=== PATIENT | female | born 1980 | race Caucasian/White ===

== ENCOUNTER 2022-07-29 10:51 | Outpatient (CLI) | payer MEDICAID, SELFPAY ==
[2022-07-29 12:23] LABS: Free T4 Free Thyroxine 2.99 ng/dL (0.82-1.77); Thyroid Stimulating Hormone 0.01 uIU/mL (0.27-4.20)
== END 2022-07-29 10:52 | disposition home or self-care (01) ==
LOC: LAB 10:54
PROVIDERS: PCP Family Medicine; Visit Provider Internal Medicine
DX: E06.3 Autoimmune thyroiditis (principal)
CPT/HCPCS: 84439; 84443

== ENCOUNTER 2022-09-19 16:41 | Outpatient (CLI) | payer MEDICAID, SELFPAY ==
[2022-09-19 21:13] LABS: Free T4 Free Thyroxine 2.29 ng/dL (0.82-1.77); Thyroid Stimulating Hormone 0.01 uIU/mL (0.27-4.20)
== END 2022-09-19 16:42 | disposition home or self-care (01) ==
LOC: LAB 16:46
PROVIDERS: PCP Family Medicine; Visit Provider Internal Medicine
DX: E06.3 Autoimmune thyroiditis (principal)
CPT/HCPCS: 84439; 84443

== ENCOUNTER 2022-10-10 16:42 | Outpatient (CLI) | payer MEDICAID, SELFPAY ==
[2022-10-10 20:24] LABS: Free T4 Free Thyroxine 1.71 ng/dL (0.82-1.77)
[2022-10-15 15:45] LABS: TSH Receptor Binding Antibody <1.00 IU/L (< OR = 2.00)
== END 2022-10-10 16:43 | disposition home or self-care (01) ==
LOC: LAB 16:45
PROVIDERS: PCP Family Medicine; Visit Provider Internal Medicine
DX: E03.8 Other specified hypothyroidism (principal); E06.3 Autoimmune thyroiditis
CPT/HCPCS: 83516; 84439

== ENCOUNTER → 2022-12-20 15:00 | Outpatient (BNVA) | payer MEDICAID, SELFPAY | PROVIDERS: PCP Family Medicine; Visit Provider Nurse Practitioner Women's Health | DX: Z01.419 Encounter for gynecological examination (general) (routine) without abnormal findings (principal); Z11.3 Encounter for screening for infections with a predominantly sexual mode of transmission | CPT/HCPCS: 86592; 86803; 87340; 87491; 87591; 87624; 87806 ==

== ENCOUNTER 2022-12-30 08:36 | Outpatient (CLI) | payer MEDICAID, SELFPAY ==
[2022-12-30 09:50] LABS: Free T4 Free Thyroxine 1.76 ng/dL (0.82-1.77); Thyroid Stimulating Hormone 0.03 uIU/mL (0.27-4.20)
[2022-12-31 05:29] LABS: T3 Total 81 ng/dL (76-181)
== END 2022-12-30 08:37 | disposition home or self-care (01) ==
PROVIDERS: PCP Family Medicine; Visit Provider Internal Medicine
DX: E03.8 Other specified hypothyroidism (principal); E06.3 Autoimmune thyroiditis
CPT/HCPCS: 36415; 84439; 84443; 84480

== ENCOUNTER 2023-01-16 11:29 | Outpatient (CLI) | payer MEDICAID, SELFPAY ==
--- NOTE | 2023-01-16 11:37 | MM_ITS ---
WS: [id number] BILATERAL 3D TOMOSYNTHESIS DIGITAL SCREENING MAMMOGRAPHY WITH CAD CLINICAL INFORMATION: Z12.31 - Encounter for screening mammogram for malignant ... HISTORY: Screening mammogram. No current complaints. COMPARISON: Baseline TECHNIQUE: Bilateral CC and MLO views. FINDINGS: The breasts are composed of heterogeneous fibroglandular density tissue, which can limit the detectio n of small underlying mass lesions. No suspicious mass, asymmetry, calcifications, or architectural d istortion. No evidence of malignancy. A few tiny incidental punctate calcifications. IMPRESSION: MM/[place] [id number] BI-RADS: 2-Benign FOLLOW UP: 1 Year Follow-up Recommend return to annual screening mammography.
== END 2023-01-16 11:30 | disposition home or self-care (01) ==
LOC: RAD 11:32 → MOBLMAM 11:37
PROVIDERS: PCP Family Medicine; Visit Provider Nurse Practitioner Women's Health
DX: Z12.31 Encounter for screening mammogram for malignant neoplasm of breast (principal)
CPT/HCPCS: 77063; 77067

== ENCOUNTER → 2023-01-18 11:54 | Outpatient (BNVA) | payer MEDICAID, SELFPAY | PROVIDERS: Visit Provider Family Medicine | DX: K52.832 Lymphocytic colitis (principal); D64.9 Anemia, unspecified; Z00.00 Encounter for general adult medical examination without abnormal findings | CPT/HCPCS: 80053; 80061; 82306; 82607; 82728; 83550; 84630; 85025 ==

== ENCOUNTER 2023-01-19 07:52 | Emergency (ER) | payer MEDICAID, SELFPAY ==
[2023-01-19 07:56] VITALS: BP 130/100; PULSE 76; RESP 17; TEMP 37.1; O2SAT 100
[2023-01-19 08:14] VITALS: BP 130/100; PULSE 66; RESP 14; O2SAT 100
[2023-01-19 08:18] LABS: Basophils # 0.1 10^3/uL (0.0-0.1); Eosinophils # 0.1 10^3/uL (0.0-0.8); Eosinophils % 1.5 %; Hematocrit 27.3 % (37.0-47.0); Hemoglobin 7.1 g/dL (11.5-15.3); Lymphocytes # 1.9 10^3/uL (0.8-4.8); Lymphocytes % 30.8 %; Mean Corpuscular Hemoglobin 16.2 pg (28.0-34.0); Mean Corpuscular Volume 62.5 fl (81-99); Mean Platelet Volume 9.2 fL (7.4-10.4); Monocytes # 0.4 10^3/uL (0.2-0.9); Monocytes % 7.1 %; Neutrophils # 3.58 10^3/uL (1.8-7.7); Neutrophils % 59.4 %; Nucleated Red Blood Cells % 0 %; Platelet Count 372 10^3/cmm (130-400); Red Blood Count 4.37 10^6/uL (4.1-5.3); Red Cell Distribution Width 20.8 % (12.1-15.1)
--- NOTE | 2023-01-19 08:21 | W.ED.RECABL ---
HPI - Recheck/Abnormal Lab/Rx General: Chief Complaint: Recheck/Abnormal Lab/Rx Stated Complaint: pcp due to labs Time Seen by Provider: 01/19/23 07:55 Source: patient Mode of arrival: ambulatory Limitations: no limitations History of Present Illness: Patient is a 42-year-old female with history of hypothyroidism and chronic anemia who presents to the emergency department due to abnormal labs yesterday. Patient was being seen by primary care provider for new patient visit yesterday, and had labs drawn resulting in a hemoglobin of 6.9 and a potassium of 2.8. She was called today and told to present to the emergency department for recheck of abnormal lab values and further work-up if necessary. Currently, her only complaint is increased hair loss with increased coarseness. She states that her hemoglobin has been low for quite some time but she isn't sure what her baseline is. She notes feeling chronically fatigued, as well as an intolerance to cold. She denies any significant weight gain, actually stating that she has lost weight due to diet changes. She recently had her levothyroxine decreased from 175 mcg to 100 mcg because her TSH was running low and free T4 was elevated. Her clinique counter manager is Dr. Priest, and she states that she recently saw her and had negative thyroid work-up, including testing negative for Graves' disease. She states that overall she feels okay right now. She denies any melena or hematochezia. She further denies any palpitations, chest pain, shortness of breath, or any other symptoms. MD complaint: abnormal lab Initial visit (ago): day(s) Returns today for: called because of abnormal lab/test Description of abnormal result: Hemoglobin of 6.9/potassium of 2.8 Symptoms since prior visit: no new symptoms Context: called for abnormal lab result Associated symptoms: other (states I feel fine ) Review of Systems Const: Reports: change in weight (Intentional weight loss), fatigue and other (Reports abnormal lab); Denies: fever(s) or chills Eyes: Denies: change in vision or blurry vision Card: Denies: chest pain, palpitations, irregular heart rhythm, lightheadedness, syncope or dyspnea on exertion Resp: Denies: dyspnea, productive cough or pain on inspiration GI: Denies: abdominal pain, nausea, vomiting, heartburn, diarrhea, hematochezia or melena : Denies: dysuria Musc: Denies: neck pain, back pain or joint pain Skin/Breast: Denies: rash Neuro: Denies: headache(s), numbness in extremities, weakness in extremities, sensory changes or dizziness Endo: Reports: cold intolerance and other PFS ED PFSH: Medical History Anemia Rao's disease Heart murmur Lymphocytic colitis No pertinent past medical history neghx:htn,dm,dvt/pe PCP: Jarrett Endo: Cem Surgical History History of laparoscopic cholecystectomy Hx of section 2005--Pre-Eclampsia at term; failed induction 2007-- repeat 2010-- repeat with tubal ligation Hx of colonoscopy with polypectomy Family History Mother Cancer skin cancer Diabetes Rao's disease Father Cancer Prostate cancer Grandmother Cancer PGM- unknown age of dx Denies family history of CAD (coronary artery disease) Hyperlipidemia Chronic kidney disease (CKD) Bleeding disorder Family history of premature coronary artery disease Hypertension Stroke Social History Smoking and tobacco status: former smoker Alcohol intake: current Alcohol intake frequency: few times a month Substance/Drug Use: never Household members: children Number of children: 3 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 Stephania/Mandaen: Gerber Physical Exam Const: COMMON NORMALS: no acute distress, average body habitus, patient oriented x3, no limitations, healthy appearing, alert and well nourished GENERAL APPEARANCE: cooperative ORIENTATION/CONSCIOUSNESS: Yes awake, Yes oriented to person, Yes oriented to place and Yes oriented to time HENMT: COMMON NORMALS: normocephalic and atraumatic HEAD & SCALP: normal to inspection, normocephalic and atraumatic Eye: COMMON NORMALS: no scleral icterus GENERAL EYE: appearance normal, both eyes and all related structures and normal light reflex DIRECT OPHTHALMOSCOPY: Yes normal light reflex Resp: COMMON NORMALS: normal respiratory effort and clear to auscultation bilaterally AUSCULTATION: clear to auscultation bilaterally Cardio: COMMON NORMALS: regular rate and regular rhythm RATE: regular rate RHYTHM: regular rhythm GI: COMMON NORMALS: Normal to inspection, nondistended, normoactive bowel sounds present, Soft to palpation, non-tender, No hepatosplenomegaly present and no masses PALPATION: Yes Soft to palpation and Yes No hepatosplenomegaly present Extremity: COMMON NORMALS: normal to inspection GENERAL: Yes normal exam except as noted Neuro: LUIS A COMA SCALE: document GCS findings Luis A coma scale eye opening: Spontaneous Luis A coma scale verbal response: Orientated [place] coma scale motor response: Obey commands [place] coma scale total score: 15 COMMON NORMALS: patient oriented x3, moves all extremities, no focal motor deficits, no sensory deficits noted and gait normal SENSORIUM/ORIENTATION: Yes alert, Yes oriented to person, Yes oriented to place and Yes oriented to time Skin: COMMON NORMALS: no rashes or lesions noted GENERAL SKIN EXAM: no rashes or lesions noted Course Vital Signs: Vital signs: Vital Signs Temperature 98.7 F 01/19/23 07:56 Pulse Rate 66 01/19/23 08:14 Respiratory Rate 14 01/19/23 08:14 Blood Pressure 130/100 01/19/23 08:14 Pulse Oximetry 100 01/19/23 08:14 Oxygen Delivery Me thod Room Air 01/19/23 08:14 MDM - Recheck/Abnormal Lab/Rx Medical Decision Making Patient was offered a blood transfusion for her hemoglobin of 6.9 but she declines. She states she has reservations about receiving somebody else's blood . She states I feel fine . She has history of chronic anemia-unknown baseline hemoglobin. Recommend she follow-up with her primary care provider in regards to this. Her hemoglobin today is 7.1. PCP has mentioned possibly setting her up with IV iron infusions. This can be completed on an outpatient basis. Her potassium on previous lab draw was 2.8. It is 3.3 today with a normal magnesium. EKG is normal. She was given PO potassium here and will be placed on potassium at home over the next week. Recommend primary care recheck this in a week or so. She can continue to follow-up with her clinique counter manager in regards to her thyroid. Patient is stable from an ED standpoint. Lab Data 01/19/23 08:09 01/19/23 08:09 Laboratory Results WBC 6.0 10^3/uL (4.0-10.0) 01/19/23 08:09 RBC 4.37 10^6/uL (4.1-5.3) 01/19/23 08:09 Hgb 7.1 g/dL (11.5-15.3) L 01/19/23 08:09 Hct 27.3 % (37.0-47.0) L 01/19/23 08:09 MCV 62.5 fl (81-99) L 01/19/23 08:09 MCH 16.2 pg (28.0-34.0) L 01/19/23 08:09 MCHC 26.0 g/dL (30.0-36.0) L 01/19/23 08:09 RDW 20.8 % (12.1-15.1) H 01/19/23 08:09 Plt Count 372 10^3/cmm (130-400) 01/19/23 08:09 MPV 9.2 fL (7.4-10.4) 01/19/23 08:09 Neut % (Auto) 59.4 % 01/19/23 08:09 Lymph % (Auto) 30.8 % 01/19/23 08:09 [place] % (Auto) 7.1 % 01/19/23 08:09 Eos % (Auto) 1.5 % 01/19/23 08:09 Baso % (Auto) 1.0 % 01/19/23 08:09 Neut # (Auto) 3.58 10^3/uL (1.8-7.7) 01/19/23 08:09 Lymph # (Auto) 1.9 10^3/uL (0.8-4.8) 01/19/23 08:09 [place] # (Auto) 0.4 10^3/uL (0.2-0.9) 01/19/23 08:09 Eos # (Auto) 0.1 10^3/uL (0.0-0.8) 01/19/23 08:09 Baso # (Auto) 0.1 10^3/uL (0.0-0.1) 01/19/23 08:09 Nucleated RBC % (auto) 0 % 01/19/23 08:09 Nucleated RBCs # 0.0 /100WBC 01/19/23 08:09 Sodium 139 mmol/L (136-145) 01/19/23 08:09 Potassium 3.3 mmol/L (3.5-5.1) L 01/19/23 08:09 Chloride 103 mmol/L (98-107) 01/19/23 08:09 Carbon Dioxide 26 mmol/L (22-29) 01/19/23 08:09 Anion Gap 13.3 (5-19) 01/19/23 08:09 BUN 9 mg/dL (6-20) 01/19/23 08:09 Creatinine 0.6 mg/dL (0.5-0.9) 01/19/23 08:09 GFR Calculation 109.1 mL/min (90-130) 01/19/23 08:09 Glucose 144 mg/dL (65-115) H 01/19/23 08:09 Calculated Osmolality 289 mOsm/kg (285-295) 01/19/23 08:09 Calcium 8.8 mg/dL (8.5-10.5) 01/19/23 08:09 Magnesium 2.1 mg/dL (1.7-2.3) 01/19/23 08:09 Total Bilirubin 0.4 mg/dL (0.15-1.2) 01/19/23 08:09 AST 16 U/L (0-32) 01/19/23 08:09 ALT < 5 U/L (0-33) 01/19/23 08:09 Alkaline Phosphatase 46 U/L (35-105) 01/19/23 08:09 Total Protein 6.9 g/dL (6.6-8.7) 01/19/23 08:09 Albumin 4.3 g/dL (3.5-5.2) 01/19/23 08:09 Globulin 2.6 g/dL (1.3-4.6) 01/19/23 08:09 EKG Data EKG 1: EKG interpretation date: 01/19/23 EKG interpretation time: 08:39 Interpretation: Sinus rhythm Rate [address] elevation or depression changes noted Normal NM interval Discharge Plan Discharge Patient Disposition: Home Clinical Impression: Hypokalemia, Microcytic anemia Condition: Stable Prescriptions: New potassium chloride 20 mEq tablet extended release 20 meq PO BID Qty: 14 0RF No Action levothyroxine 100 mcg capsule 100 mcg PO DAILY Qty: 30 1RF biotin 800 mcg Tablet 800 mcg PO DAILY Discharge Orders: Discharge ED (Routine); Ordered 01/19/23 Ordered By: Jyotsna Francisco Activity Restrictions/Additional Instructions: As we have discussed you have declined blood transfusion at this time. Recommend you continue to follow-up with your primary care provider in regards to your chronic anemia. They have mentioned possibly setting you up with IV iron infusions. This can be completed on an outpatient basis. Your potassium here was higher than it was on previous lab draw. You were given oral potassium here and will be placed on potassium tablets at home over the next week. Please follow-up with your primary care provider and have this rechecked in a week. As we discussed may continue to follow-up with your clinique counter manager in regards to your thyroid. Coding Level of Care Code ED Union Organizer for Esteban Chao
[2023-01-19 08:35] LABS: Alanine Aminotransferase < 5 U/L (0-33); Albumin Level 4.3 g/dL (3.5-5.2); Alkaline Phosphatase 46 U/L (35-105); Anion Gap 13.3 (5-19); Aspartate Amino Transferase 16 U/L (0-32); Blood Urea Nitrogen 9 mg/dL (6-20); Calcium 8.8 mg/dL (8.5-10.5); Carbon Dioxide 26 mmol/L (22-29); Chloride 103 mmol/L (98-107); Globulin 2.6 g/dL (1.3-4.6); Glomerular Filtration Rate 109.1 mL/min (90-130); Glucose 144 mg/dL (65-115); Magnesium 2.1 mg/dL (1.7-2.3); Osmolality Calculated 289 mOsm/kg (285-295); Potassium 3.3 mmol/L (3.5-5.1); Sodium 139 mmol/L (136-145); Total Bilirubin 0.4 mg/dL (0.15-1.2); Total Protein 6.9 g/dL (6.6-8.7)
[2023-01-19] MEDS: potassium chloride ER 20 mEq Tablet 40 MEQ PO (08:43)
[2023-01-19 09:22] VITALS: BP 132/82; PULSE 66; RESP 16; O2SAT 100
--- NOTE | 2023-01-20 12:00 | DCPLANNER ---
manager of network was triggered to call patient due to no primary care physician - patient sees Dr. Farias at [facility].
== END 2023-01-19 09:29 | disposition home or self-care (01) ==
PROVIDERS: Emergency Medicine; Emergency Provider Physician Assistant; PCP Family Medicine
DX: E87.6 Hypokalemia (principal); D50.9 Iron deficiency anemia, unspecified; Z87.891 Personal history of nicotine dependence
CPT/HCPCS: 36415; 80053; 83735; 85025; 86850; 86900; 86920; 99284

== ENCOUNTER → 2023-01-27 11:05 | Outpatient (BNVA) | payer MEDICAID, SELFPAY | PROVIDERS: PCP Family Medicine; Visit Provider Family Medicine | DX: D64.9 Anemia, unspecified (principal) | CPT/HCPCS: 80048; 83540; 85025 ==

== ENCOUNTER 2023-02-02 09:38 | Outpatient (CLI) | payer MEDICAID, SELFPAY ==
--- NOTE | 2023-02-02 09:45 | USCV_ITS ---
Nori Lopez Age: 42 Gender: F : 1980 Exam Date: 02/02/2023 10:03 Ordering Phys: Ronel Farias MD Technologist: ANTONIO [place] [facility] [place]: MURMUR BP: 110 / 60 HR: 65 Rhythm: Sinus Technical Quality: Adequate MEASUREMENTS (Male / Female) Normal Values 2D ECHO LVOT Diameter 2.0 cm LV Ejection Fraction MOD 2C 66.9 % LV Ejection Fraction 2C AL 66.0 % LA Diameter 2.0 cm LA Width 2.5 cm LA Height 4.6 cm RA Width 2.6 cm RA Height 4.4 cm Aorta at Sinotubular Diameter 2.2 cm IVC Diameter 1.7 cm M-MODE Aortic Annulus Diameter 2.5 cm LA Ao Ratio MM 0.7 MV E Point Septal Separation 0.3 cm DOPPLER AV Peak Velocity 139.0 cm/s LVOT Peak Velocity 78.0 cm/s AV Area Cont Eq vti 2.2 cm squared AV Area Cont Eq pk 1.8 cm squared MV Peak Velocity 89.0 cm/s MV Area PHT 3.0 cm squared Mitral E to A Ratio 1.3 MV E' Velocity 61.0 cm/s Mitral E to MV E' Ratio 8.0 Mitral E to LV E' Lateral Ratio 7.8 Mitral E to LV E' Septal Ratio 8.3 TR Peak Velocity 158.4 cm/s TR Peak Gradient 10.0 mmHg TR Mean Velocity 126.9 cm/s TR Mean Gradient 7.1 mmHg TR Velocity Time Integral 42.3 cm TV Peak E Velocity 55.0 cm/s Right Atrial Pressure 3.0 mmHg Pulmonary Artery Systolic Pressu 13.0 mmHg PV Peak Velocity 132.0 cm/s RV Acceleration Time 0.2 s RV Ejection Time 0.3 s RV AcT/ET 0.5 FINDINGS Left Ventricle Normal left ventricular size, systolic function and wall thickness, with no regional wall motion abnormalities. Left ventricular ejection fraction is estimated at 60 %. Normal diastolic function. Right Ventricle Normal right ventricular size and systolic function. Right ventricular systolic pressure 13 mmHg. Right Atrium Normal right atrial size. Left Atrium Normal left atrial size. Mitral Valve Structurally normal mitral valve. No mitral valve stenosis. No mitral valve regurgitation. Aortic Valve Structurally normal trileaflet aortic valve. No aortic valve stenosis. No aortic valve regurgitation. Tricuspid Valve Structurally normal tricuspid valve. No tricuspid valve stenosis. Trace tricuspid valve regurgitation. Pulmonic Valve Pulmonic valve not well visualized. Pericardium No pericardial effusion. Aorta Normal size aortic root and proximal ascending aorta. IVC Normal IVC dimension with >50% respiratory change of the inferior vena cava. CONCLUSIONS 1.Normal left ventricular size, systolic function and wall thickness, with no regional wall motion abnormalities. Left ventricular ejection fraction is estimated at 60 %. Normal diastolic function. 2. No significant valvular abnormality. 3. No prior similar studies to compare. Lupis Pollock MD (Electronically Signed) Final Date: 13 February 2023 00:06 S
== END 2023-02-02 09:39 | disposition home or self-care (01) ==
LOC: RAD 09:39
PROVIDERS: PCP Family Medicine; Visit Provider Family Medicine
DX: R01.1 Cardiac murmur, unspecified (principal)
CPT/HCPCS: 93306

== ENCOUNTER 2023-02-14 12:47 | Outpatient (CLI) | payer MEDICAID, SELFPAY ==
--- NOTE | 2023-02-14 13:00 | USCV_ITS ---
Nori Lopez Age: 42 Gender: F : 1980 Exam Date: 02/14/2023 13:06 Ordering Phys: James Alvarado MD (Andy) ([email or web address]) Technologist: Exam Location: [facility] [place] Indication: HISTORY: Varicose veins. PROCEDURES: Bilateral duplex Venous Insufficiency study of the Deep and Superficial systems was carried out according to normal protocol with the patient in supine positon for deep system and dependent position for the superficial system. FINDINGS: All deep veins demonstrated compressibility without evidence of intraluminal thrombus or increased echogenicity. Spectral analysis of Doppler signals demonstrates normal response to compression maneuvers indicating patency without obstruction. Reflux determinations were made with the patient in the dependent position, the weight being on the contralateral leg. There is significanct reflux in the rt leg a distal gsaph and gsaph below the knee. The reflux time at the distal and below-knee greater saphenous vein segments where 3.04 and 2.78 seconds respectively. The D segments were measuring 0.38 and 0.27 cm in diameter and at a depth of 0.67 and 1.48 cm from the surface No significant reflux were noted on the left side. The veins were found to be easily compressible with spontaneous blood flow. Non pulsatile flow pattern. CONCLUSIONS 1. No evidence of DVT in the above-mentioned identifiable veins. 2. Significant referral if venous reflux of greater than 500 ms were noted at the distal and below-knee segments of the greater saphenous vein on the right side. The reflux time, venous diameter and depth on the surface are as mentioned above. The distal greater saphenous vein segment appears to be very superficial, less than 1 cm from the surface 3. No significant venous reflux were noted on the left side . Dr Massiel Smallwood MD [facility] (Electronically Signed) Final Date: 15 February 2023 10:32 S
== END 2023-02-14 12:48 | disposition home or self-care (01) ==
LOC: RAD 12:50
PROVIDERS: PCP Family Medicine; Visit Provider Thoracic Surgery (Cardiothoracic Vascular Surgery)
DX: I83.90 Asymptomatic varicose veins of unspecified lower extremity (principal)
CPT/HCPCS: 93970

== ENCOUNTER 2023-02-27 11:30 | Oncology outpatient (recurring) (ONCR) | payer MEDICAID, SELFPAY ==
[2023-02-16 08:19] VITALS: BP 105/69; PULSE 64; RESP 16; TEMP 36.6; O2SAT 99
[2023-02-16] MEDS: sodium chloride 0.9% 250 ML 100 ML IV (08:46)
[2023-02-16] MEDS: iron sucrose 200 MG in sodium chloride 0.9% (100 ml) 100 ML 220 MG IV (08:46)
[2023-02-16 09:43] VITALS: BP 100/60; PULSE 16; RESP 16; TEMP 36.7; O2SAT 99
[2023-02-20 11:05] VITALS: BP 113/76; PULSE 68; RESP 16; TEMP 36.9; O2SAT 99
[2023-02-20] MEDS: sodium chloride 0.9% 250 ML 75 ML IV (11:11)
[2023-02-20] MEDS: iron sucrose 200 MG in sodium chloride 0.9% (100 ml) 100 ML 220 MG IV (11:18)
[2023-02-20 12:12] VITALS: BP 137/77; PULSE 62; RESP 16; TEMP 36.4; O2SAT 99
[2023-02-22 08:30] VITALS: BP 135/63; PULSE 62; RESP 16; TEMP 36.6; O2SAT 97
[2023-02-22] MEDS: sodium chloride 0.9% 250 ML 75 ML IV (08:47)
[2023-02-22] MEDS: iron sucrose 200 MG in sodium chloride 0.9% (100 ml) 100 ML 220 MG IV (08:47)
[2023-02-22 09:25] VITALS: BP 120/72; PULSE 72; RESP 16; TEMP 36.7; O2SAT 99
[2023-02-24 10:00] VITALS: BP 126/73; PULSE 61; RESP 16; TEMP 37.2; O2SAT 97
[2023-02-24] MEDS: iron sucrose 200 MG in sodium chloride 0.9% (100 ml) 100 ML 220 MG IV (10:21)
[2023-02-24 10:58] VITALS: BP 106/62; PULSE 65; RESP 16; TEMP 36.9; O2SAT 97
[2023-02-27 11:17] VITALS: BP 107/72; PULSE 72; RESP 18; TEMP 36.8; O2SAT 99
[2023-02-27] MEDS: iron sucrose 200 MG in sodium chloride 0.9% (100 ml) 100 ML 220 MG IV (11:26)
[2023-02-27] MEDS: sodium chloride 0.9% 250 ML 100 ML IV (11:26)
[2023-02-27 12:14] VITALS: BP 116/72; PULSE 60; RESP 18; TEMP 36.6; O2SAT 99
== END 2023-03-04 23:59 | disposition home or self-care (01) ==
PROVIDERS: PCP Family Medicine; Visit Provider Family Medicine
DX: D50.9 Iron deficiency anemia, unspecified (principal); Z53.9 Procedure and treatment not carried out, unspecified reason
CPT/HCPCS: 96365; J1756; J7050

== ENCOUNTER 2023-03-03 15:08 | Outpatient (CLI) | payer MEDICAID, SELFPAY ==
[2023-03-03 15:34] LABS: Basophils # 0.1 10^3/uL (0.0-0.1); Basophils % 0.7 %; Eosinophils # 0.1 10^3/uL (0.0-0.8); Eosinophils % 0.7 %; Hematocrit 30.7 % (36-47); Lymphocytes # 2.3 10^3/uL (0.8-4.8); Lymphocytes % 34.5 %; Mean Corpuscular HGB Conc 28.3 g/dL (30-55); Mean Corpuscular Hemoglobin 21.2 pg (27-33); Mean Corpuscular Volume 74.9 fl (85-98); Mean Platelet Volume 10.5 fL (7.4-10.4); Monocytes # 0.4 10^3/uL (0.2-0.9); Monocytes % 6.3 %; Neutrophils # 3.83 10^3/uL (1.8-7.7); Neutrophils % 57.5 %; Nucleated Red Blood Cells % 0 %; Platelet Count 318 10^3/cmm (157-399); White Blood Count 6.67 10^3/uL (3.29-11.43)
[2023-03-03 16:00] LABS: Ferritin 205 ng/mL (15-150); Iron 50 ug/dL (37-145); Percent Saturation 13.5 % (20-50); Total Iron Binding Capacity 369 mcg/dl; Unsaturated Iron Binding 319 ug/dL (112-347)
[2023-03-03 16:02] LABS: Add RBC Morph Yes; Anisocytosis 3+; Hypochromasia 1+; Macrocytosis 2+; Ovalocytes Trace; Polychromasia 2+; RBC Morph Comp No; Slide Review Slide Review Perform
[2023-03-03 16:03] LABS: Acanthocytes Trace
== END 2023-03-03 15:09 | disposition home or self-care (01) ==
PROVIDERS: PCP Family Medicine; Visit Provider Internal Medicine
DX: D50.9 Iron deficiency anemia, unspecified (principal)
CPT/HCPCS: 36415; 82728; 83540; 83550; 85025

== ENCOUNTER 2023-03-06 08:09 | Outpatient (CLI) | payer MEDICAID, SELFPAY ==
[2023-03-06 08:58] LABS: Free T4 Free Thyroxine 1.64 ng/dL (0.82-1.77); Thyroid Stimulating Hormone 0.08 uIU/mL (0.27-4.20)
== END 2023-03-06 08:10 | disposition home or self-care (01) ==
PROVIDERS: PCP Family Medicine; Visit Provider Internal Medicine
DX: D50.9 Iron deficiency anemia, unspecified; E03.8 Other specified hypothyroidism; E06.3 Autoimmune thyroiditis
CPT/HCPCS: 84439; 84443

== ENCOUNTER 2023-04-18 05:49 | Day surgery (SDC) | payer MEDICAID, SELFPAY ==
--- NOTE | 2023-04-18 06:12 | USCV_ITS ---
HalRupinder curiely Age: 42 Gender: F : 1980 Exam Date: 04/18/2023 07:01 Ordering Phys: James Alvarado MD (Andy) ([email or web address]) Technologist: Sina Quiroz [place] [facility] [place]: varicose veins PROCEDURES: Rt leg great saph ablation guidance FINDINGS: Sucessfull rt great saph ablation good flow in epigastic. The common femoral vein, saphenofemoral junction, epigastric vein were found to be patent with no evidence of thrombus. The greater saphenous vein distal to the epigastric inferior epigastric was found to be occluded CONCLUSIONS 1. Patent saphenofemoral junction and the inferior epigastric vein 2. Occluded greater saphenous vein distal to the epigastric Dr Massiel Smallwood MD FAC (Electronically Signed) Final Date: 19 April 2023 23:04 S
[2023-04-18 06:30] VITALS: BP 121/73; PULSE 70; RESP 18; TEMP 36.8; O2SAT 99; BMI 24.1
--- NOTE | 2023-04-18 06:31 | PM.HP ---
Providers/Chief Complaint Admitting Physician: Dr. Alvarado Primary Care Provider: Ronel Farias MD Chief Complaint: 31249 I26.852 History of Present Illness Nori Lopez is a 42 year old female whom I saw originally back on January 31 for symptomatic varicose veins of the right lower extremity, mostly involving the medial aspect and to lesser degree posteriorly of the left extremity. Her biggest complaint however was right lower extremity discomfort with prolonged standing. She has a known iron deficiency anemia and has been scheduled for initiation of IV iron therapy after failure of improvement with oral. She had been utilizing knee-high compression garments upon her original presentation today and did note symptomatic improvement. We separately obtained venous duplex study with reflux provocation which identified reflux involving the distal thigh and below-knee segments of the right greater saphenous vein. Upon discussion for consideration of RF catheter ablation, she wished to proceed with hopeful improvement of her symptoms, though clear understanding that it may not be beneficial. Review of Systems Const: Reports: fatigue; Denies: fever(s) or chills Eyes: Denies: change in vision ENMT: Denies: throat pain Card: Reports: palpitations; Denies: chest pain, edema or lightheadedness Resp: Denies: dyspnea or productive cough GI: Denies: abdominal pain, nausea or vomiting : Denies: flank pain Musc: Reports: extremity pain (Right lower extremity with prolonged standing); Denies: neck pain Skin/Breast: Denies: rash or non-healing lesions Neuro: Denies: headache(s) or numbness in extremities Psych: Denies: anxiety or depression Medications/Allergies Home Medications Medication Instructions Recorded Confirmed Last Taken Type biotin 800 mcg tablet 800 mcg PO DAILY 01/19/23 04/17/23 04/17/23 History levothyroxine 75 mcg tablet 75 mcg PO DAILY 30 days #30 tabs 03/20/23 04/18/23 04/18/23 05:00 Rx Allergies Allergy/AdvReac Type Severity Reaction Status Date / Time No Known Allergies Allergy Verified 04/18/23 06:05 PFSH Acute PFSH: Medical History Accessory breast tissue of axilla Heart murmur 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 Iron deficiency anemia Lymphocytic colitis Surgical History History of laparoscopic cholecystectomy Hx of section 2005--Pre-Eclampsia at term; failed induction 2007-- repeat 2010-- repeat with tubal ligation Hx of colonoscopy with polypectomy Family History Mother Cancer skin cancer Diabetes Rao's disease Father Cancer Prostate cancer Grandmother Cancer PGM- unknown age of dx Denies family history of CAD (coronary artery disease) Hyperlipidemia Chronic kidney disease (CKD) Bleeding disorder Family history of premature coronary artery disease Hypertension Stroke Social History Smoking and tobacco/nicotine status: former use of tobacco/nicotine Alcohol intake: current Alcohol intake frequency: few times a month Substance/Drug Use: never Household members: children Number of children: 3 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 Stephania/Gnosticist: Zabrina Vitals/I&O/Wt Last Vital Signs Temp 98.2 F 04/18/23 06:30 Pulse 70 04/18/23 06:30 Resp 18 04/18/23 06:30 BP 121/73 04/18/23 06:30 Pulse Ox 99 04/18/23 06:30 O2 Del Method Room Air 04/18/23 06:30 Weight last 48 hrs Weight 145 lb Physical Exam Const: COMMON NORMALS: no acute distress, average body habitus and patient oriented x3 HENMT: COMMON NORMALS: normocephalic, atraumatic and hearing grossly normal bilaterally Eye: COMMON NORMALS: EOMs intact bilaterally and no scleral icterus Neck/C-Spine: COMMON NORMALS: full ROM Resp: COMMON NORMALS: normal respiratory effort and clear to auscultation bilaterally Cardio: COMMON NORMALS: regular rate, regular rhythm, S1 normal heart sound present and No murmurs present (Cardio) Extremity: NARRATIVE EXTREMITY EXAM: small angiomata about the ankles. Prominent varicosities medially in the mid calf region of the right lower extremity and to lesser degree posteriorly of the left lower extremity. Negative Homans' sign. No chronic skin changes. No discolorations. No ulcerations or history for ulcerations. Minimal lower extremity edema just above the ankle bilaterally. CEAP classification C3 Neuro: COMMON NORMALS: patient oriented x3, moves all extremities, no focal motor deficits, no sensory deficits noted and gait normal A&P Assessment and plan (1) Varicose vein of leg: Attestations Medical Necessity Statement*: Symptomatic varicose veins right lower extremity with documented reflux by venous duplex ultrasound of February 14. Rationale to consider RF catheter ablation of the right greater saphenous vein was carefully discussed. Particular risk of injury to the skin, bleeding, bruising, infection, DVT, pain post procedure, failure to benefit. Need for further procedures were frankly discussed. Varying degrees of success can be expected including perhaps potential cosmetic improvement though this is not the goal of this therapy and should not be expected. She stated understanding. We have discussed this previously on her previous clinic visits. She wishes to proceed. A proper consents have been provided for review and signature. Coding Level of Care Code Acute Code for emily Chao Diagnoses Varicose vein of leg I83.90
[2023-04-18] MEDS: diazePAM 5 mg Tablet PO (06:36)
[2023-04-18 06:41] LABS: OR HCG Qualitative Urine Negative (Negative)
[2023-04-18] MEDS: lidocaine 1% INJ 10 mL (per mL) XX (07:50)
[2023-04-18 08:03] VITALS: BP 138/77; PULSE 58; RESP 18; TEMP 36.8; O2SAT 98
--- NOTE | 2023-04-18 08:06 | P.OP_ITS ---
Operative Report Date of procedure: April 18, 2023 Pre-op diagnosis: Right greater saphenous vein venous reflux with symptomatic right lower extremity varicose veins Post-op diagnosis: same Procedure done: Radiofrequency catheter ablation of the right greater saphenous vein Pathology: none sent Surgeon: James Alvarado MD Anesthesia: Local Estimated blood loss (mL): 2 Complications: none Condition: stable Disposition: same day Brief History: Ms. Lopez is a 42-year-old female with highly symptomatic venous reflux of the right greater saphenous vein and painful right lower extremity varicose veins. RF catheter ablation has been offered in an attempt to improve her symptoms related to venous reflux and painful varicose veins. Details and risk of the procedure were carefully reviewed with her and family. Appropriate consents have been reviewed and signed. Procedure: The insufficient right greater saphenous vein was verified by ultrasound and diagrammed on the overlying skin. The varicose tributary veins and suitable access sites were identified and mapped. The affected right lower extremity prepped and draped in the usual sterile fashion. Appropriate timeout was completed and confirmed by all surgical members present. Ms. Lopez was placed in reverse Trendelenburg position. Tumescent was instilled in the skin overlying the access site for local anesthesia. The vein was accessed in the right mid calf region using ultrasound guidance and the Seldinger technique, a guidewire was introduced through the needle, which was then exchanged over the guidewire for a 7F sheath. The RF catheter was placed on the sterile field, flushed and wiped down, prepared, and connected by a sterile cable. The patient was placed in Trendelenburg position. After RF catheter position was verified by ultrasound, tumescent anesthesia was infiltrated, under ultrasound guidance, precisely into the perivenous compartment along the entire length of vein. After the RF catheter position was again confirmed with ultrasound imaging, and under direct external compression along the length of the heating element, RF energy was applied. The vein was segmentally ablated until the treatment length is completed. Device temperature was maintained at 120 +/- degrees C with an initial power level of 40W dropping to below 20W for each treatment. Total vein length treated 42 cm. Vein diameter 1-1.5 cm. Total cycles of RF 22. Time 7 minutes and 20 seconds. Repeat ultrasound of the right greater saphenous vein was performed, confirming successful treatment. The catheter and sheath were withdrawn and hemostasis established with direct pressure. After assuring hemostasis, the skin incision over the saphenous vein was closed with a bandage and graduated compression stocking was applied from the level of the foot to the most proximal length of the thigh. I did community health counselor with her the completion of the procedure. She will follow-up for posttreatment ultrasound within 1 week and clinic visit in 2 weeks.
--- NOTE | 2023-04-18 08:17 | P.DS_ITS ---
Discharge Providers Date of Admission: April 18, 2023 Date of Discharge: April 18, 2023 Attending Provider at Admission: Dr. Alvarado Attending Provider at Discharge: James Alvarado MD Primary Care Provider: Ronel Farias MD Diagnoses at Discharge Discharge Diagnosis (1) Varicose vein of leg: Details from hospital stay: Ms. Camarillo was electively admitted for planned RF frequency catheter ablation of the right greater saphenous vein with documented reflux and prominent, painful varicosities of the right lower extremity. She is undergone outpatient evaluation noting substantial reflux on the right side with symptomatic improvement with compression therapy. Therefore she was elective admitted for planned catheter ablation, which was performed without incident. She tolerated procedure well. Graduated compression was applied to her right lower extremity post procedure. She will be discharged to home today in stable condition with plan to follow-up for reexamination by ultrasound within 1 week and then clinic visit in 2 weeks. Discharge instructions have been reviewed with her and her . At the time of discharge she is in stable condition. Status: Chronic Reason for Visit Reason for Visit: 53861 I83.899 Physical Exam Resp: COMMON NORMALS: normal respiratory effort and clear to auscultation bilaterally AUSCULTATION: clear to auscultation bilaterally Cardio: COMMON NORMALS: regular rate, regular rhythm, S1 normal heart sound present, No gallops present (Cardio), No murmurs present (Cardio) and No rub (Cardio) RATE: regular rate RHYTHM: regular rhythm HEART SOUNDS: S1 normal heart sound present Extremity: NARRATIVE EXTREMITY EXAM: Documented reflux was again confirmed during the procedure and ultrasound evidence of successful ablation of the right greater saphenous vein was noted at completion of radiofrequency catheter ablation. Discharge Data Studies Completed and Pending Pending at discharge Category Date Time Status CV guide venous ablation Routine Ultrasound 04/18/23 06:12 Taken Laboratory Results Urine HCG, Qual Negative (Negative) 04/18/23 06:40 Vitals Last Vital Signs Temp 98.2 F 04/18/23 08:03 Pulse 58 L 04/18/23 08:03 Resp 18 04/18/23 08:03 BP 138/77 04/18/23 08:03 Pulse Ox 98 04/18/23 08:03 O2 Del Method Room Air 04/18/23 08:03 Discharge Plan Discharge Patient Disposition: Home Condition: Stable Prescriptions: Continued levothyroxine 75 mcg tablet 75 mcg PO DAILY 30 Days Qty: 30 3RF biotin 800 mcg Tablet 800 mcg PO DAILY Discharge Orders: Discharge Order (Routine); Ordered 04/18/23 Ordered By: James Alvarado Other Ambulatory Orders: [place] [id number] (Routine) Timeframe: 1 Week Location: [facility] Ordered By: James Alvarado Referrals: James Alvarado MD [Physician] - 2 weeks (Clinic to call you in 2-3 days with a follow up appointment) Discharge Diet: Usual diet Discharge Activity: Limit activity as instructed Patient Instructions: Ablation Home Discharge Instructions, Varicose Veins Activity Restrictions/Additional Instructions: Notify us for increasing pain or swelling of the right leg or for fever. Wear your own compression stockings after removal of the surgical wrap. May shower without dressings in place. No swimming or tub baths x1 week. Discharge Attestations Time Spent in Discharge Care*: less than 30 min Specific Discharge Activities: educating patient, educating and/or supporting family/caregiver, documenting/other paperwork and evaluating patient/reviewing data Status at Discharge: Cognitive status at discharge: cognitively intact , Behavioral status at discharge: cooperative , Functional status at discharge: independent ambulation , Overall status at discharge: patient is back to [facility] Quality Metrics Clinical Quality Measures [ No reported AMI, CVA or VTE this stay] Coding Level of Care Code Acute Code for Chg Fwd Diagnoses Varicose vein of leg I83.90
[2023-04-18 08:35] VITALS: BP 114/77; PULSE 62; RESP 17; TEMP 36.8; O2SAT 99
== END 2023-04-18 09:20 | disposition home or self-care (01) ==
PROVIDERS: Anesthesiology; PCP Family Medicine; Visit Provider Thoracic Surgery (Cardiothoracic Vascular Surgery)
DX: I83.91 Asymptomatic varicose veins of right lower extremity (principal); E03.9 Hypothyroidism, unspecified
CPT/HCPCS: 36475; 84703; C1887

== ENCOUNTER 2023-04-25 06:48 | Outpatient (CLI) | payer MEDICAID, SELFPAY ==
--- NOTE | 2023-04-25 06:15 | USCV_ITS ---
Nori Lopez Age: 42 Gender: F : 1980 Exam Date: 04/25/2023 07:10 Ordering Phys: James Alvarado MD (Andy) ([email or web address]) Technologist: Exam Location: [facility] [place] Indication: post ablation follow up PROCEDURES: RT EPIGASTRIC IS OPEN GSAPH THROMBUS IS FLUSH WITH THE JUCNTION OF THE CFV CONCLUSIONS Post ablation GSV thrombus extends to cfv junction Right epigastric is patent Saeid Hyatt MD (Electronically Signed) Final Date: 25 April 2023 15:47 S
== END 2023-04-25 06:49 | disposition home or self-care (01) ==
LOC: RAD 06:48
PROVIDERS: PCP Family Medicine; Visit Provider Thoracic Surgery (Cardiothoracic Vascular Surgery)
DX: I83.91 Asymptomatic varicose veins of right lower extremity (principal); I82.811 Embolism and thrombosis of superficial veins of right lower extremity
CPT/HCPCS: 93971

== ENCOUNTER 2023-05-05 08:01 | Outpatient (CLI) | payer MEDICAID, SELFPAY ==
[2023-05-05 08:45] LABS: Basophils % 0.8 %; Eosinophils # 0.1 10^3/uL (0.0-0.8); Eosinophils % 1.6 %; Hematocrit 37.1 % (36-47); Lymphocytes # 1.9 10^3/uL (0.8-4.8); Lymphocytes % 50.9 %; Mean Corpuscular HGB Conc 31.5 g/dL (30-55); Mean Corpuscular Hemoglobin 27.7 pg (27-33); Mean Corpuscular Volume 87.9 fl (85-98); Mean Platelet Volume 10.1 fL (7.4-10.4); Monocytes # 0.3 10^3/uL (0.2-0.9); Monocytes % 9.1 %; Neutrophils # 1.39 10^3/uL (1.8-7.7); Neutrophils % 37.3 %; Nucleated Red Blood Cells % 0 %; Platelet Count 245 10^3/cmm (157-399); Red Blood Count 4.22 10^6/uL (3.85-5.65); White Blood Count 3.73 10^3/uL (3.29-11.43)
[2023-05-05 09:07] LABS: Ferritin 21 ng/mL (15-150); Iron 76 ug/dL (37-145); Thyroid Stimulating Hormone 1.33 uIU/mL (0.27-4.20); Total Iron Binding Capacity 399 mcg/dl; Unsaturated Iron Binding 323 ug/dL (112-347)
[2023-05-05 09:32] LABS: Add RBC Morph Yes; Slide Review Slide Review Perform
[2023-05-05 09:33] LABS: Anisocytosis 2+; Hypochromasia 1+; Ovalocytes Trace; Poikilocytosis 1+; RBC Morph Comp No
[2023-05-05 10:02] LABS: Free T4 Free Thyroxine 1.32 ng/dL (0.82-1.77)
== END 2023-05-05 08:02 | disposition home or self-care (01) ==
LOC: LAB 08:03
PROVIDERS: Absent Provider Family Medicine; PCP Family Medicine; Visit Provider Internal Medicine
DX: D64.9 Anemia, unspecified (principal); D50.9 Iron deficiency anemia, unspecified; E03.8 Other specified hypothyroidism; E06.3 Autoimmune thyroiditis
CPT/HCPCS: 36415; 82728; 83540; 83550; 84439; 84443; 85025

== ENCOUNTER 2023-07-10 16:12 | Outpatient (CLI) | payer MEDICAID, SELFPAY ==
[2023-07-10 21:11] LABS: Free T4 Free Thyroxine 1.24 ng/dL (0.82-1.77); Thyroid Stimulating Hormone 0.85 uIU/mL (0.27-4.20)
== END 2023-07-10 16:13 | disposition home or self-care (01) ==
LOC: LAB 16:12
PROVIDERS: PCP Family Medicine; Visit Provider Internal Medicine
DX: E03.8 Other specified hypothyroidism (principal); E06.3 Autoimmune thyroiditis
CPT/HCPCS: 36415; 84439; 84443

== ENCOUNTER → 2023-08-01 10:22 | Outpatient (BNVA) | payer MEDICAID, SELFPAY | PROVIDERS: PCP Family Medicine; Visit Provider Nurse Practitioner Women's Health | DX: N92.0 Excessive and frequent menstruation with regular cycle (principal) | CPT/HCPCS: 76830 ==

== ENCOUNTER → 2023-08-07 15:53 | Outpatient (BNVA) | payer MEDICAID, SELFPAY | PROVIDERS: PCP Family Medicine; Visit Provider Family Medicine | DX: D64.9 Anemia, unspecified (principal); D50.9 Iron deficiency anemia, unspecified | CPT/HCPCS: 83540 ==

== ENCOUNTER → 2023-09-25 13:49 | Outpatient (BNVA) | payer MEDICAID, SELFPAY | PROVIDERS: PCP Family Medicine; Visit Provider Family Medicine | DX: D64.9 Anemia, unspecified (principal); D50.9 Iron deficiency anemia, unspecified | CPT/HCPCS: 82728; 83540; 85025 ==

== ENCOUNTER → 2023-10-03 08:09 | Outpatient (BNVA) | payer MEDICAID, SELFPAY | PROVIDERS: PCP Family Medicine; Visit Provider Internal Medicine | DX: E03.8 Other specified hypothyroidism (principal); E06.3 Autoimmune thyroiditis | CPT/HCPCS: 84439; 84443; 84480 ==

== ENCOUNTER 2023-11-03 09:00 | Oncology outpatient (recurring) (ONCR) | payer MEDICAID, SELFPAY ==
[2023-10-26 09:26] VITALS: BP 106/72; PULSE 72; RESP 18; TEMP 36; O2SAT 98
[2023-10-26] MEDS: iron sucrose 200 MG in sodium chloride 0.9% (100 ml) 100 ML 220 MG IV (09:30)
[2023-10-26 10:03] VITALS: BP 108/75; PULSE 66; RESP 18; TEMP 36; O2SAT 100
[2023-10-31 09:26] VITALS: BP 101/66; PULSE 71; RESP 18; TEMP 36.4; O2SAT 99
[2023-10-31] MEDS: iron sucrose 200 MG in sodium chloride 0.9% (100 ml) 100 ML 220 MG IV (10:05)
[2023-10-31 10:45] VITALS: BP 96/66; PULSE 67; RESP 18; TEMP 36.7; O2SAT 98
[2023-11-03] MEDS: iron sucrose 200 MG in sodium chloride 0.9% (100 ml) 100 ML 220 MG IV (10:03)
[2023-11-03 10:17] VITALS: BP 103/69; PULSE 55; RESP 17; TEMP 36.8; O2SAT 100
[2023-11-03 10:47] VITALS: BP 104/63; PULSE 67; RESP 16; TEMP 36.6; O2SAT 98
== END 2023-11-03 23:59 | disposition home or self-care (01) ==
PROVIDERS: PCP Family Medicine; Visit Provider Family Medicine
DX: Z53.9 Procedure and treatment not carried out, unspecified reason (principal); D50.9 Iron deficiency anemia, unspecified
CPT/HCPCS: 96365; J1756

== ENCOUNTER 2023-11-09 09:00 | Oncology outpatient (recurring) (ONCR) | payer MEDICAID, SELFPAY ==
[2023-11-06 08:18] VITALS: BP 124/79; PULSE 74; RESP 18; TEMP 36.5; O2SAT 100
[2023-11-06] MEDS: iron sucrose 200 MG in sodium chloride 0.9% (100 ml) 100 ML 220 MG IV (08:38)
[2023-11-06 09:12] VITALS: BP 106/73; PULSE 64; RESP 18; TEMP 36.4; O2SAT 99
[2023-11-09 09:24] VITALS: BP 110/65; PULSE 61; RESP 16; TEMP 36.8; O2SAT 99
[2023-11-09] MEDS: iron sucrose 200 MG in sodium chloride 0.9% (100 ml) 100 ML 220 MG IV (09:44)
[2023-11-09 10:22] VITALS: BP 117/78; PULSE 60; O2SAT 99
== END 2023-12-03 23:59 | disposition home or self-care (01) ==
PROVIDERS: PCP Family Medicine; Visit Provider Family Medicine
DX: Z53.9 Procedure and treatment not carried out, unspecified reason; D50.9 Iron deficiency anemia, unspecified
CPT/HCPCS: 96365; J1756

== ENCOUNTER 2024-01-01 10:29 | Outpatient (CLI) | payer MEDICAID, SELFPAY ==
[2024-01-01 11:36] LABS: Free T4 Free Thyroxine 1.31 ng/dL (0.82-1.77); Thyroid Stimulating Hormone 0.56 uIU/mL (0.27-4.20)
[2024-01-02 09:30] LABS: T3 Total 75 ng/dL (76-181)
== END 2024-01-01 10:30 | disposition home or self-care (01) ==
LOC: LAB 10:30
PROVIDERS: PCP Family Medicine; Visit Provider Internal Medicine
DX: E03.8 Other specified hypothyroidism (principal); E06.3 Autoimmune thyroiditis
CPT/HCPCS: 36415; 84439; 84443; 84480

== ENCOUNTER 2024-01-15 15:39 | Outpatient (CLI) | payer MEDICAID, SELFPAY ==
[2024-01-15 16:20] LABS: Basophils # 0.1 10^3/uL (0.0-0.1); Basophils % 0.8 %; Eosinophils # 0.1 10^3/uL (0.0-0.8); Eosinophils % 1.4 %; Hematocrit 36.9 % (36-47); Lymphocytes # 2.3 10^3/uL (0.8-4.8); Lymphocytes % 31.3 %; Mean Corpuscular HGB Conc 32.8 g/dL (30-55); Mean Corpuscular Volume 91.3 fl (85-98); Mean Platelet Volume 10.6 fL (7.4-10.4); Monocytes # 0.5 10^3/uL (0.2-0.9); Monocytes % 6.4 %; Neutrophils # 4.43 10^3/uL (1.8-7.7); Neutrophils % 59.8 %; Nucleated Red Blood Cells % 0 %; Platelet Count 231 10^3/cmm (157-399); Red Blood Count 4.04 10^6/uL (3.85-5.65); Red Cell Distribution Width 15.8 % (12.1-15.1); White Blood Count 7.39 10^3/uL (3.29-11.43)
[2024-01-15 17:28] LABS: Alanine Aminotransferase 9 U/L (0-33); Albumin Level 4.2 g/dL (3.5-5.2); Alkaline Phosphatase 47 U/L (35-105); Anion Gap 15.8 (5-19); Aspartate Amino Transferase 11 U/L (0-32); Blood Urea Nitrogen 11 mg/dL (6-20); Calcium 8.6 mg/dL (8.5-10.5); Carbon Dioxide 23 mmol/L (22-29); Chloride 105 mmol/L (98-107); Ferritin 92 ng/mL (15-150); Globulin 2.1 g/dL (1.3-4.6); Glucose 84 mg/dL (65-115); Iron 88 ug/dL (37-145); Magnesium 2.2 mg/dL (1.7-2.3); Osmolality Calculated 289 mOsm/kg (285-295); Potassium 3.8 mmol/L (3.5-5.1); Prealbumin 19.7 mg/dL (20-40); Sodium 140 mmol/L (136-145); Total Bilirubin 0.2 mg/dL (0.15-1.2); Total Iron Binding Capacity 293 mcg/dl; Total Protein 6.3 g/dL (6.6-8.7); Unsaturated Iron Binding 205 ug/dL (112-347)
[2024-01-15 17:43] LABS: 25 Hydroxy Vitamin D 21 ng/mL (30-100); Vitamin B12 1739 pg/mL (232-1245)
[2024-01-17 00:28] LABS: Zinc Level, Serum or Plasma 65 mcg/dL (60-130)
[2024-01-18 07:35] LABS: Methylmalonic Acid 61 nmol/L (55-335)
== END 2024-01-15 15:40 | disposition home or self-care (01) ==
LOC: LAB 15:40
PROVIDERS: PCP Family Medicine; Visit Provider Family Medicine
DX: D64.9 Anemia, unspecified (principal); D50.9 Iron deficiency anemia, unspecified; R53.83 Other fatigue; K90.9 Intestinal malabsorption, unspecified
CPT/HCPCS: 36415; 80053; 81291; 82306; 82607; 82728; 83540; 83550; 83735; 83921; 84134; 84630; 85025

== ENCOUNTER 2024-01-23 08:39 | Day surgery (SDC) | payer MEDICAID, SELFPAY ==
[2024-01-22 08:41] LABS: Charge for UA Resulting for Rev
[2024-01-22 08:47] LABS: Bilirubin Urine Neg (Negative); Blood Urine 2+ (Negative); Glucose Urine UA Norm (Normal); Ketones Urine Negative (Negative); Leukocyte Esterase Urine Negative (Negative); Nitrate Urine Negative (Negative); Protein Urine Neg (Negative); Specific Gravity, Urine 1.025 (1.005-1.030); UA Manual Slide Review YES; Urine Appearance Clear (CLEAR); Urine Color Yellow (Yellow); Urobilinogen Urine Norm (Negative); pH Urine 5 (5-7)
[2024-01-22 08:50] LABS: Basophils % 0.7 %; Eosinophils # 0.1 10^3/uL (0.0-0.8); Eosinophils % 2.2 %; Hematocrit 34.8 % (36-47); Lymphocytes # 2.1 10^3/uL (0.8-4.8); Lymphocytes % 34.1 %; Mean Corpuscular HGB Conc 33.3 g/dL (30-55); Mean Corpuscular Hemoglobin 30.9 pg (27-33); Mean Corpuscular Volume 92.6 fl (85-98); Mean Platelet Volume 10.3 fL (7.4-10.4); Monocytes # 0.5 10^3/uL (0.2-0.9); Monocytes % 7.8 %; Neutrophils % 54.9 %; Nucleated Red Blood Cells % 0 %; Platelet Count 232 10^3/cmm (157-399); Red Blood Count 3.76 10^6/uL (3.85-5.65); Red Cell Distribution Width 15.4 % (12.1-15.1); White Blood Count 6.01 10^3/uL (3.29-11.43)
--- NOTE | 2024-01-22 09:00 | P.ANESASSM_ITS ---
Pre-Anesthetic Assessment Height/Weight: Height 1.65 m Operation Date: 01/23/24 10:30 Proposed Procedures p Endometriosis Cauterization Endometrial Ablation 70898, N92.4(Not Applicable) - Timoteo Diaz MD Familial anesthetic complications: Epidural wore off during a ; patient is unable to recall if she required GETA from that point if if supplemental IV meds served as adequate adjuvants to complete the surgery Was Beta Salbador taken within 24 hours: N/A Was Clonidine taken within 24 hours: N/A Social Tobacco and No alcohol Exam alert, oriented x 3, clear to auscultation bilaterally and regular rate & rhythm Airway Mallampati: Class III Dentition: other (2 missing) CV/HEM Anemia Metabolic Thyroid Disease Anesthetic Plan ASA status: 2 Anesthesia: General Risk of > 500 ml blood loss (7ml/kg in children): No Medications/Allergies Home Medications Medication Instructions Recorded Confirmed Last Taken Type biotin 800 mcg tablet 800 mcg PO DAILY 01/19/23 01/22/24 01/21/24 History estradiol 0.01% (0.1 mg/gram) 1 g vaginal .2-3 times/weekly 07/14/23 01/22/24 Unknown Rx vaginal cream #42.5 grams liothyronine 5 mcg tablet (Cytomel) 10 mcg (2 x 5 mcg) PO DAILY #180 01/11/24 01/22/24 01/22/24 Rx tabs B12 1,000 1 tab PO DAILY 01/22/24 01/22/24 01/22/24 History mcg-methyltetrahydrofolate 680 mcg DFE-B6 1.5 mg chew tablet ascorbic acid (vitamin C) 500 mg 500 mg PO DAILY 01/22/24 01/22/24 01/22/24 History tablet (Vitamin C) cholecalciferol (vitamin D3) 50 50 mcg PO DAILY 01/22/24 01/22/24 01/22/24 History mcg (2,000 unit) capsule (Vitamin D3) levothyroxine 75 mcg tablet 75 mcg PO DAILY 01/22/24 01/22/24 01/22/24 History milk thistle seed 1 tab PO DAILY 01/22/24 01/22/24 01/22/24 History ve-gxqpjztgev-qkunxvgil-turmeri 250 mg-250 mg tablet (Liver Complex) vitamin K2 40 mcg tablet 40 mcg PO DAILY 01/22/24 01/22/24 01/22/24 History zinc 1 tab PO DAILY 01/22/24 01/22/24 01/21/24 History Allergies Allergy/AdvReac Type Severity Reaction Status Date / Time No Known Allergies Allergy Verified 01/15/24 10:09 [facility] Anesthesia Medical History Iron deficiency anemia Heart murmur Accessory breast tissue of axilla Lymphocytic colitis 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 Surgical History Hx of section 2005--Pre-Eclampsia at term; failed induction 2007-- repeat 2010-- repeat with tubal ligation Hx of colonoscopy with polypectomy History of laparoscopic cholecystectomy Family History Mother Cancer skin cancer Diabetes Rao's disease Father Cancer Prostate cancer Grandmother Cancer PGM- unknown age of dx Denies family history of CAD (coronary artery disease) Hyperlipidemia Chronic kidney disease (CKD) Bleeding disorder Family history of premature coronary artery disease Hypertension Stroke Social History Smoking and tobacco/nicotine status: current some day tobacco/nicotine user Alcohol intake: current Alcohol intake frequency: few times a month Substance/Drug Use: never Number of children: 3 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 Stephania/Gnosticism: Gerber Female Reproductive History Date of last menstrual period: 01/17/24 Data Anesthesia 01/22/24 08:30 01/22/24 08:30 Short CBC 01/22/24 Range/Units 08:30 WBC 6.01 (3.29-11.43) 10^3/uL Hgb 11.60 (11.27-16.99) g/dL Hct 34.8 L (36-47) % MCV 92.6 (85-98) fl Plt Count 232 (157-399) 10^3/cmm Neut % (Auto) 54.9 % Neut # (Auto) 3.30 (1.8-7.7) 10^3/uL Urine 01/22/24 Range/Units 08:33 Urine Color Yellow (Yellow) Urine Appearance Clear (CLEAR) Urine pH 5 (5-7) Ur Specific [place] 1.025 (1.005-1.030) Urine Protein Neg (Negative) Urine Glucose (UA) Norm (Normal) Urine Ketones Negative (Negative) Urine Nitrate Negative (Negative) Urine Bilirubin Neg (Negative) Ur Leukocyte Esterase Negative (Negative) Cardiac Studies: 2 Echocardiogram 02/02/23
[2024-01-22 09:03] LABS: Anion Gap 13.1 (5-19); Blood Urea Nitrogen 14 mg/dL (6-20); Calcium 8.7 mg/dL (8.5-10.5); Carbon Dioxide 26 mmol/L (22-29); Chloride 107 mmol/L (98-107); Glomerular Filtration Rate 108.6 mL/min (90-130); Glucose 96 mg/dL (65-115); Osmolality Calculated 294 mOsm/kg (285-295); Potassium 4.1 mmol/L (3.5-5.1); Sodium 142 mmol/L (136-145)
[2024-01-22 09:36] LABS: Add Urine Culture? No; Bacteria Urine TRACE /hpf; Mucus Urine 2+ /hpf; Squamous Epithelial Cell Urine 0-4 /hpf (0-5); WBC Urine 0-4 /hpf (0-5)
[2024-01-23] VITALS (9 sets, daily range): BP systolic 97–118; BP diastolic 59–77; PULSE 57–90; RESP 15–16; TEMP 36.2–36.8; O2SAT 95–100; BMI 25.7
[2024-01-23 09:06] LABS: OR HCG Qualitative Urine Negative (Negative)
[2024-01-23] MEDS: sodium chloride 0.9% 1,000 ML 30 ML IV (09:13)
[2024-01-23] MEDS: ceFAZolin 2,000 mg SDV 2000 MG IVP (09:14)
[2024-01-23] MEDS: scopolamine 1.5 Patch 1 PATCH TRANSDERMA (09:18)
--- NOTE | 2024-01-23 09:48 | ANES.PREANE2 ---
Pre-Anesthetic Assessment Height/Weight: Height 5 ft 5 in Weight 155 lb Temp Pulse Resp BP Pulse Ox O2 Del Method 98.2 F 57 L 15 111/68 100 Room Air 01/23/24 09:00 01/23/24 09:00 01/23/24 09:00 01/23/24 09:00 01/23/24 09:00 01/23/24 09:00 Preop Diagnosis: Abnormal uterine bleeding Operation Date: 01/23/24 10:30 Proposed Procedures p Endometriosis Cauterization Endometrial Ablation 50004, N92.4(Not Applicable) - Timoteo Diaz MD Last intake: Intake Last Liquid Date 01/22/24 Last Liquid Time 21:00 Last Solid Date 01/22/24 Last Solid Time 18:30 Social Tobacco quit smoking for a few years but started back up 2 months ago Exam alert and oriented x 3 Airway Submandibular: within normal limits Cervical ROM: within normal limits Mallampati: Class II Dentition: full Comments: Comments: few missing molars Pulmonary None reported Anesthetic Plan ASA status: 2 Anesthesia: General Other: No prior issues with Anesthesia METS>4 NPO since MN Patient has an ejection flow murmur. Echo 01/2023 showing EF 60% with no valve abnormalities. Patient asymptomatic Hoshimotos noted, on levothyroxine current smoker Consents to GETA Medications/Allergies Home Medications Medication Instructions Recorded Confirmed Last Taken Type biotin 800 mcg tablet 800 mcg PO DAILY 01/19/23 01/22/24 01/21/24 History estradiol 0.01% (0.1 mg/gram) 1 g vaginal .2-3 times/weekly 07/14/23 01/22/24 Unknown Rx vaginal cream #42.5 grams liothyronine 5 mcg tablet (Cytomel) 10 mcg (2 x 5 mcg) PO DAILY #180 01/11/24 01/22/24 01/22/24 Rx tabs B12 1,000 1 tab PO DAILY 01/22/24 01/22/24 01/22/24 History mcg-methyltetrahydrofolate 680 mcg DFE-B6 1.5 mg chew tablet ascorbic acid (vitamin C) 500 mg 500 mg PO DAILY 01/22/24 01/22/24 01/22/24 History tablet (Vitamin C) cholecalciferol (vitamin D3) 50 50 mcg PO DAILY 01/22/24 01/22/24 01/22/24 History mcg (2,000 unit) capsule (Vitamin D3) levothyroxine 75 mcg tablet 75 mcg PO DAILY 01/22/24 01/23/24 01/23/24 History milk thistle seed 1 tab PO DAILY 01/22/24 01/22/24 01/22/24 History yo-idtuefrsac-pbhefhtqw-turmeri 250 mg-250 mg tablet (Liver Complex) vitamin K2 40 mcg tablet 40 mcg PO DAILY 01/22/24 01/22/24 01/22/24 History zinc 1 tab PO DAILY 01/22/24 01/22/24 01/21/24 History Allergies Allergy/AdvReac Type Severity Reaction Status Date / Time No Known Allergies Allergy Verified 01/15/24 10:09 Current Medications Generic Name Dose Route Start Last Admin Trade Name Freq PRN Reason Stop Dose Admin Sodium Chloride 1,000 mls @ 30 mls/hr 01/22/24 13:45 01/23/24 09:13 Sodium Chloride 0.9% IV 01/23/24 13:44 30 mls/hr .Q24H ELIAS Administration PFSH Anesthesia Medical History Iron deficiency anemia Heart murmur Accessory breast tissue of axilla Lymphocytic colitis 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 Surgical History Hx of section 2005--Pre-Eclampsia at term; failed induction 2007-- repeat 2010-- repeat with tubal ligation Hx of colonoscopy with polypectomy History of laparoscopic cholecystectomy Family History Mother Cancer skin cancer Diabetes Rao's disease Father Cancer Prostate cancer Grandmother Cancer PGM- unknown age of dx Denies family history of CAD (coronary artery disease) Hyperlipidemia Chronic kidney disease (CKD) Bleeding disorder Family history of premature coronary artery disease Hypertension Stroke Social History Smoking and tobacco/nicotine status: current some day tobacco/nicotine user Alcohol intake: current Alcohol intake frequency: few times a month Substance/Drug Use: never Number of children: 3 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 Stepahnia/Buddhist: Gerber Female Reproductive History Date of last menstrual period: 01/17/24 Data Anesthesia 01/22/24 08:30 01/22/24 08:30 Short CBC 01/22/24 Range/Units 08:30 WBC 6.01 (3.29-11.43) 10^3/uL Hgb 11.60 (11.27-16.99) g/dL Hct 34.8 L (36-47) % MCV 92.6 (85-98) fl Plt Count 232 (157-399) 10^3/cmm Neut % (Auto) 54.9 % Neut # (Auto) 3.30 (1.8-7.7) 10^3/uL BMP 01/22/24 08:30 Sodium 142 Potassium 4.1 Chloride 107 Carbon Dioxide 26 BUN 14 Creatinine 0.6 Glucose 96 Calcium 8.7 Urine 01/22/24 Range/Units 08:33 Urine Color Yellow (Yellow) Urine Appearance Clear (CLEAR) Urine pH 5 (5-7) Ur Specific [place] 1.025 (1.005-1.030) Urine Protein Neg (Negative) Urine Glucose (UA) Norm (Normal) Urine Ketones Negative (Negative) Urine Nitrate Negative (Negative) Urine Bilirubin Neg (Negative) Ur Leukocyte Esterase Negative (Negative) Urine RBC None (0-2) /hpf Urine WBC 0-4 H (0-5) /hpf Blood Bank 01/22/24 08:30 Blood Type O Positive Rho(D) Type Rh positive Antibody Screen Negative Cardiac Studies: Echocardiogram 02/02/23
--- NOTE | 2024-01-23 10:39 | W.PM.OPSUD ---
Surgery/Procedure H&P Update DATE OF PROCEDURE: January 23, 2024 DATE H&P PERFORMED: 01/19/24 H&P UPDATE INFORMATION: I have reviewed H&P completed within last 30 days, I have examined patient prior to procedure and No changes to prior documentation PREOP DIAGNOSIS: Abnormal uterine bleeding PLANNED PROCEDURE: Operation Date: 01/23/24 10:30 Proposed Procedures p Endometriosis Cauterization Endometrial Ablation 27379, N92.4(Not Applicable) - Timoteo Diaz MD
[2024-01-23] MEDS: lidocaine-epi 2% PF 1:200,000 20 mL SDV INJECTION (11:21)
--- NOTE | 2024-01-23 11:44 | W.PM.BPON ---
Date of Procedure: 01/23/24 Surgeon: Timoteo Diaz MD Physical Therapy Professor(s): Procedure(s) performed: Vulvar inclusion cyst excision, diagnostic hysteroscopy, dilation and curettage via MyoSure, endometrial ablation via NovaSure Findings of the procedure(s): Left side periclitoral vulvar inclusion cyst approximately 5mm, proliferative endometrium Estimated blood loss: 5 mL Specimen(s) removed: Endometrial curettings, vulvar inclusion cyst Post-operative diagnosis: []
--- NOTE | 2024-01-23 11:48 | P.OP_ITS ---
Operative Report Date of procedure: January 23, 2024 Pre-op diagnosis: Abnormal uterine bleeding: Menorrhagia Left side periclitoral vulvar inclusion cyst Post-op diagnosis: same Procedure done: Vulvar inclusion cyst excision Diagnostic hysteroscopy Dilation and curettage via MyoSure Endometrial ablation via NovaSure Specimens removed/disposition: Vulvar inclusion cyst Endometrial curettings Surgeon: Timoteo Diaz MD Estimated blood loss (mL): 5 IV fluids (mL): 450 Complications: None Procedure: After informed consent, the risks included but were not limited to bleeding, infection, injury to internal organs. The patient was counseled on a possible laparotomy and on the potential need for hysterectomy. The patient expressed understanding of the risks involved, all questions were answered, and the patient consented to the procedure. The patient was taken to the operating room where general anesthesia was administered. She was placed in the dorsal lithot frank position and prepped and draped in sterile fashion. A time out procedure was performed. The patient was examined under anesthesia and found to have a normal uterus with normal adnexa. The inclusion cyst was identified and grasped with Adson's forceps and a small incision was made over the inclusion cyst and the lesion was removed without complications. A 3-0 Vicryl suture was used to closed the small incision. Good hemostasis was noted. Then a sterile open side brave speculum was placed in the vagina. The uterus was then gently sounded to 9 cm, and the cervix was gradually dilated with cervical dilators. The 0 degrees MyoSure hysteroscope was advanced gently to the uterine fundus while visualizing the monitor. Survey of the uterine cavity showed: Proliferative endometrium, the fundus shows normal proliferative endometrium; left ostium was visualized, and lateral wall with proliferative endometrium; right ostium visualized, and lateral wall with proliferative endometrium; anterior and posterior colmenares are with proliferative endometrium; endocervical canal is normal. The MyoSure device was advanced and the direct visualization the endometrium was morcellated without complication. At the end of morcellation the fluid deficit was 370 mL and was estimated at approximately 200 mL were on the floor. There was minimal bleeding noted and the tenaculum removed with goad hemostasis noted. Then proceeded to perform the endometrial ablation. The anterior lip of the cervix was grasped with a single toothed tinaculum and brought forward. Taking care not to enter deep into the uterus, a sound was passed inside to measure the length of the uterus and cervix. This yielded an endometrial cavity length of 5.5 cm. The diagnostic hysteroscope was then introduced into the uterine cavity and the uterus was distended with normal saline fluid. The cavity was examined and found to be normal shape without polyps. Both ostea were visualized. The novosure device was then opened and tested; the fan deployed easily. The instrument was set to the correct cavity length and introduced into the uterine cavity. The fan was slowly deployed with gentle movements to ensure a snug fit within the cavity. The cavity width read 2.5. The measurements were imported and a cavity check was done. The trumpet was then slid down to the cervix and the device was activated. The total burn time was 49 seconds and the power was 76W. The fan was retracted and device removed. The fan was examined and revealed charred tissue. The tenaculum was removed and the cervix examined for hemostasis which was achieved. Finally the speculum was removed. The patient tolerated the procedure well and was brought to the recovery room in a stable condition. At the end of the procedure all sponges and instruments were counted and correct. The blood loss was minimal and there were no complications.
[2024-01-23] MEDS: fentaNYL 50 mcg/mL INJ 2mL IVP (12:15)
--- NOTE | 2024-01-23 13:35 | ANE.PACU2 ---
Inpatient post-anesthesia follow up: Airway intact: Yes Vital signs: Temperature 97.4 F Pulse Rate 66 Respiratory Rate 15 Blood Pressure 118/59 Pulse Oximetry 100 Oxygen Delivery Me thod Room Air Oxygen Flow Rate Fraction of Inspir ed Oxygen Hydration adequate: Yes Nausea and vomiting: No Pain level: 1 Mental status: Baseline
== END 2024-01-23 13:35 | disposition home or self-care (01) ==
PROVIDERS: PCP Family Medicine; Visit Provider Obstetrics & Gynecology
PROC: 0U598ZZ Destruction of Uterus, Via Natural or Artificial Opening Endoscopic (ICD-10-PCS; CPT 58563; 2024-01-23 10:30)
DX: N93.9 Abnormal uterine and vaginal bleeding, unspecified (principal); N92.0 Excessive and frequent menstruation with regular cycle; N90.7 Vulvar cyst; E06.3 Autoimmune thyroiditis; F17.200 Nicotine dependence, unspecified, uncomplicated
CPT/HCPCS: 11420; 58563; 36415; 80048; 81003; 81015; 81025; 85025; 86850; 86900; 88304; 88305; J0131; J0690; J1100; J1885; J2250; J2405; J2704; J3010; J7030

== ENCOUNTER 2024-02-27 08:03 | Outpatient (CLI) | payer MEDICAID, SELFPAY ==
[2024-02-27 08:51] LABS: Free T4 Free Thyroxine 0.99 ng/dL (0.82-1.77)
[2024-02-28 10:38] LABS: T3 Total 75 ng/dL (76-181)
== END 2024-02-27 08:04 | disposition home or self-care (01) ==
LOC: LAB 08:04
PROVIDERS: PCP Family Medicine; Visit Provider Internal Medicine
DX: E03.8 Other specified hypothyroidism (principal); E06.3 Autoimmune thyroiditis
CPT/HCPCS: 36415; 84439; 84443; 84480

== ENCOUNTER → 2024-03-11 11:09 | Outpatient (BNVA) | payer MEDICAID, SELFPAY | PROVIDERS: PCP Family Medicine; Visit Provider Obstetrics & Gynecology | DX: Z34.90 Encounter for supervision of normal pregnancy, unspecified, unspecified trimester (principal); Z48.816 Encounter for surgical aftercare following surgery on the genitourinary system; Z71.1 Person with feared health complaint in whom no diagnosis is made; Z3A.00 Weeks of gestation of pregnancy not specified | CPT/HCPCS: 86705; 86706; 86803; 87340; 87491; 87591; 87806 ==

== ENCOUNTER 2024-04-29 17:36 | Outpatient (CLI) | payer MEDICAID, SELFPAY ==
[2024-04-29 19:03] LABS: Free T4 Free Thyroxine 1.14 ng/dL (0.82-1.77)
[2024-05-01 09:29] LABS: T3 Total 96 ng/dL (76-181)
== END 2024-04-29 17:37 | disposition home or self-care (01) ==
LOC: LAB 17:38
PROVIDERS: Internal Medicine; PCP Family Medicine; Visit Provider Emergency Medicine Pediatric Emergency Medicine
DX: E03.8 Other specified hypothyroidism (principal); E06.3 Autoimmune thyroiditis
CPT/HCPCS: 84439; 84443; 84480

== ENCOUNTER → 2024-06-27 07:14 | Outpatient (BNVA) | payer MEDICAID, SELFPAY | PROVIDERS: PCP Family Medicine; Visit Provider Family Medicine | DX: D50.9 Iron deficiency anemia, unspecified (principal); D64.9 Anemia, unspecified; R37 Sexual dysfunction, unspecified | CPT/HCPCS: 82040; 82728; 83540; 84270; 84403; 85025 ==

== ENCOUNTER 2024-07-02 10:26 | Outpatient (CLI) | payer MEDICAID, SELFPAY ==
[2024-07-03 08:04] LABS: T3 Total 87 ng/dL (76-181)
[2024-07-03 12:51] LABS: Free T4 Free Thyroxine 1.09 ng/dL (0.82-1.77); Thyroid Stimulating Hormone 0.15 uIU/mL (0.27-4.20)
[2024-07-03 13:17] LABS: Iron 130 ug/dL (37-145)
== END 2024-07-02 10:27 | disposition home or self-care (01) ==
LOC: LAB 10:27
PROVIDERS: PCP Family Medicine; Visit Provider Internal Medicine
DX: E03.8 Other specified hypothyroidism; E06.3 Autoimmune thyroiditis; R53.83 Other fatigue
CPT/HCPCS: 36415; 84480

== ENCOUNTER 2025-01-02 07:30 | Outpatient (CLI) | payer MEDICAID, SELFPAY ==
[2025-01-02 08:40] LABS: Free T4 Free Thyroxine 0.87 ng/dL (0.82-1.77); Thyroid Stimulating Hormone 1.39 uIU/mL (0.27-4.20)
== END 2025-01-02 07:31 | disposition home or self-care (01) ==
PROVIDERS: PCP Family Medicine; Visit Provider Internal Medicine
DX: E03.8 Other specified hypothyroidism (principal); E06.3 Autoimmune thyroiditis
CPT/HCPCS: 36415; 84439; 84443; 84480

== ENCOUNTER 2025-01-16 07:04 | Day surgery (SDC) | payer MEDICAID, SELFPAY ==
[2025-01-16 07:23] VITALS: BP 116/78; PULSE 65; RESP 16; O2SAT 99; BMI 27.4
[2025-01-16 07:29] LABS: OR HCG Qualitative Urine Negative (Negative)
--- NOTE | 2025-01-16 08:08 | ANES.PREANE2 ---
Pre-Anesthetic Assessment Height/Weight: Height 5 ft 5 in Weight 165 lb Pulse Resp BP Pulse Ox O2 Del Method 65 16 116/78 99 Room Air 01/16/25 07:23 01/16/25 07:23 01/16/25 07:23 01/16/25 07:23 01/16/25 07:23 Preop Diagnosis: Screening colonoscopy Operation Date: 01/16/25 08:30 Proposed Procedures p Colonoscopy 37837, G0121, Z12.11(Not Applicable) - Viktor Anderson MD Was Beta Salbador taken within 24 hours: N/A Was Clonidine taken within 24 hours: N/A Last intake: Intake Last Liquid Date 01/15/25 Last Liquid Time 23:00 Last Solid Date 01/14/25 Last Solid Time 18:00 Social No alcohol and No tobacco Quit smoking 6 months ago Exam alert, oriented x 3, clear to auscultation bilaterally and regular rate & rhythm Airway Submandibular: within normal limits Cervical ROM: within normal limits Mallampati: Class II Dentition: full Anesthetic Plan ASA status: 3 Anesthesia: MAC Other: Patient states that she wakes up superfast from anesthesia Completed bowel prep History of hypothyroidism on Synthroid GERD, controlled with Protonix Chronic iron deficiency anemia hCG negative METs greater than 4 Plan for MAC anesthesia Medications/Allergies Home Medications ?Medication ?Instructions ?Recorded ?Confirmed ?Last Taken ?Type biotin 800 mcg tablet 800 mcg PO DAILY 01/19/23 01/16/25 01/15/25 History ascorbic acid (vitamin C) 500 mg 500 mg PO DAILY 01/22/24 01/16/25 01/15/25 History tablet (Vitamin C) cholecalciferol (vitamin D3) 50 50 mcg PO DAILY 01/22/24 01/16/25 01/15/25 History mcg (2,000 unit) capsule (Vitamin D3) vitamin K2 40 mcg tablet 40 mcg PO DAILY 01/22/24 01/16/25 01/15/25 History zinc 1 tab PO DAILY 01/22/24 01/16/25 01/15/25 History estradiol 0.01% (0.1 mg/gram) See Rx Instructions .Route 03/19/24 01/16/25 01/15/25 Rx vaginal cream .COMPLEX #42.5 grams liver extract 1 tab PO DAILY 08/23/24 01/16/25 01/15/25 History levothyroxine 75 mcg tablet 75 mcg PO DAILY 01/13/25 01/16/25 01/16/25 History liothyronine 5 mcg tablet 15 mcg PO DAILY 01/13/25 01/16/25 01/15/25 History pantoprazole 40 mg tablet,delayed 40 mg PO DAILY 01/14/25 01/16/25 01/16/25 History release Allergies Allergy/AdvReac Type Severity Reaction Status Date / Time No Known Allergies Allergy Verified 01/13/25 09:49 Current Medications Generic Name Dose Route Start Last Admin Trade Name Freq PRN Reason Stop Dose Admin Sodium Chloride 1,000 mls @ 15 mls/hr 01/16/25 07:14 01/16/25 07:36 Sodium Chloride 0.9% IV 01/17/25 07:13 15 mls/hr .Q24H PRN Administration COLONOSCOPY FLUIDS PFSH Anesthesia Medical History Iron deficiency anemia Heart murmur Accessory breast tissue of axilla Lymphocytic colitis 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 Removal of periclitoral vulvar inclusion cyst also. Hx of section 2005--Pre-Eclampsia at term; failed induction 2007-- repeat 2010-- repeat with tubal ligation Hx of colonoscopy with polypectomy History of laparoscopic cholecystectomy Family History Mother Cancer skin cancer Diabetes Rao's disease Father Cancer Prostate cancer Grandmother Cancer PGM- unknown age of dx Denies family history of CAD (coronary artery disease) Hyperlipidemia Chronic kidney disease (CKD) Bleeding disorder Family history of premature coronary artery disease Hypertension Stroke Social History Smoking and tobacco/nicotine status: former use of tobacco/nicotine Data Anesthesia Cardiac Studies: Echocardiogram 02/02/23
--- NOTE | 2025-01-16 08:32 | W.PM.OPSUD ---
Surgery/Procedure H&P Update DATE OF PROCEDURE: January 16, 2025 DATE H&P PERFORMED: 01/09/25 H&P UPDATE INFORMATION: I have reviewed H&P completed within last 30 days, I have examined patient prior to procedure and No changes to prior documentation PREOP DIAGNOSIS: Screening colonoscopy PLANNED PROCEDURE: Operation Date: 01/16/25 08:30 Proposed Procedures p Colonoscopy 61966, G0121, Z12.11(Not Applicable) - Viktor Andesron MD
[2025-01-16 09:22] VITALS: BP 127/78; PULSE 63; RESP 18; TEMP 36.2; O2SAT 99
[2025-01-16 09:30] VITALS: BP 133/78; PULSE 51; RESP 18; O2SAT 100
[2025-01-16 09:40] VITALS: BP 125/76; PULSE 48; RESP 18; O2SAT 100
--- NOTE | 2025-01-16 09:53 | ANE.PACU2 ---
Inpatient post-anesthesia follow up: Airway intact: Yes Vital signs: Temperature 97.2 F Pulse Rate 48 Respiratory Rate 18 Blood Pressure 125/76 Pulse Oximetry 100 Oxygen Delivery Me thod Room Air Oxygen Flow Rate Fraction of Inspir ed Oxygen Hydration adequate: Yes Nausea and vomiting: No Pain level: 1 Mental status: Baseline
--- NOTE | 2025-01-16 10:24 | SUR.OPER ---
cecum time [id number]
== END 2025-01-16 09:53 | disposition home or self-care (01) ==
PROVIDERS: Student in an Organized Health Care Education/Training Program; PCP Family Medicine; Visit Provider Student in an Organized Health Care Education/Training Program
PROC: 0DJD8ZZ Inspection of Lower Intestinal Tract, Via Natural or Artificial Opening Endoscopic (ICD-10-PCS; CPT 45378; principal; 2025-01-16 08:30)
DX: Z12.11 Encounter for screening for malignant neoplasm of colon (principal); K21.9 Gastro-esophageal reflux disease without esophagitis; D50.9 Iron deficiency anemia, unspecified; R01.1 Cardiac murmur, unspecified; K52.832 Lymphocytic colitis; E03.9 Hypothyroidism, unspecified; Z87.891 Personal history of nicotine dependence
CPT/HCPCS: 45378; 81025; J2704; J7030

== ENCOUNTER 2025-01-27 14:25 | Outpatient (CLI) | payer MEDICAID, SELFPAY ==
--- NOTE | 2025-01-27 14:15 | US_ITS ---
WS: [id number] BILATERAL 3D TOMOSYNTHESIS DIGITAL DIAGNOSTIC MAMMOGRAPHY WITH CAD CLINICAL INFORMATION: N63.25 - Unspecified lump in the left breast, overlapping... HISTORY: Palpable lump LEFT breast COMPARISON: 01/16/2023 TECHNIQUE: Bilateral CC, MLO, and ML views. FINDINGS: The breasts are composed of heterogeneous fibroglandular density, which can limit the detection of small underlying mass lesions. Palpable marker upper outer LEFT breast. Dense underlying parenchymal tissue. This area mostly compresses out on the spot compression views. Ultrasound is pending. Unremarkable RIGHT breast. ULTRASOUND BREAST LEFT TECHNIQUE: Ultrasound left breast focused area of concern. CLINICAL INFORMATION: N63.25 - Unspecified lump in the left breast, overlapping... FINDINGS: Ultrasound upper outer LEFT breast in the area of concern. Dense underlying parenchymal tissue. No focal cystic or solid lesions to target for biopsy. No other suspicious findings. US/US breast LT limited* [id number] IMPRESSION: DENSITY: The breasts are heterogeneously dense, which may obscure small masses. BI-RADS: 2 - Benign FOLLOW UP: 1 Year Follow-up Recommend return to annual screening mammography.
--- NOTE | 2025-01-27 14:30 | MM_ITS ---
WS: [id number] BILATERAL 3D TOMOSYNTHESIS DIGITAL DIAGNOSTIC MAMMOGRAPHY WITH CAD CLINICAL INFORMATION: N63.25 - Unspecified lump in the left breast, overlapping... HISTORY: Palpable lump LEFT breast COMPARISON: 01/16/2023 TECHNIQUE: Bilateral CC, MLO, and ML views. FINDINGS: The breasts are composed of heterogeneous fibroglandular density, which can limit the detection of small underlying mass lesions. Palpable marker upper outer LEFT breast. Dense underlying parenchymal tissue. This area mostly compresses out on the spot compression views. Ultrasound is pending. Unremarkable RIGHT breast. ULTRASOUND BREAST LEFT TECHNIQUE: Ultrasound left breast focused area of concern. CLINICAL INFORMATION: N63.25 - Unspecified lump in the left breast, overlapping... FINDINGS: Ultrasound upper outer LEFT breast in the area of concern. Dense underlying parenchymal tissue. No focal cystic or solid lesions to target for biopsy. No other suspicious findings. MM/MM diag tomosynthesis [id number] IMPRESSION: DENSITY: The breasts are heterogeneously dense, which may obscure small masses. BI-RADS: 2 - Benign FOLLOW UP: 1 Year Follow-up Recommend return to annual screening mammography.
== END 2025-01-27 14:26 | disposition home or self-care (01) ==
PROVIDERS: PCP Family Medicine; Visit Provider Nurse Practitioner Women's Health
DX: N63.25 Unspecified lump in the left breast, overlapping quadrants (principal); R92.333 Mammographic heterogeneous density, bilateral breasts
CPT/HCPCS: 76642; 77062; G0279

== ENCOUNTER → 2025-03-24 09:06 | Outpatient (BNVA) | payer MEDICAID, SELFPAY | PROVIDERS: PCP Family Medicine; Visit Provider Family Medicine | DX: D64.9 Anemia, unspecified (principal); D50.9 Iron deficiency anemia, unspecified | CPT/HCPCS: 82728; 83550; 85025 ==

== ENCOUNTER 2025-05-21 11:48 | Outpatient (CLI) | payer MEDICAID, SELFPAY ==
[2025-05-21 13:19] LABS: Free T4 Free Thyroxine 1.06 ng/dL (0.82-1.77); Thyroid Stimulating Hormone 0.42 uIU/mL (0.27-4.20)
== END 2025-05-21 11:49 | disposition home or self-care (01) ==
LOC: LAB 11:49
PROVIDERS: PCP Family Medicine; Visit Provider Internal Medicine
DX: E03.8 Other specified hypothyroidism (principal); E06.3 Autoimmune thyroiditis
CPT/HCPCS: 84439; 84443; 84480